=== PATIENT | male | born 1980 | race Caucasian/White ===

== ENCOUNTER 2019-09-04 19:28 | Emergency (ER) | payer OTHER ==
--- NOTE | 2019-09-04 19:59 | EDM.PDOC ---
ED HPI GENERAL MEDICAL PROBLEM - General Chief Complaint: Back Pain or Injury Stated Complaint: BACK INJURY Time Seen by Provider: 09/04/19 19:39 Source of Information: Reports: Patient, Family () History Limitations: Reports: No Limitations - History of Present Illness INITIAL COMMENTS - FREE TEXT/NARRATIVE: Mr. Ward is a very pleasant 39-year-old man with no chronic medical problems and no past surgical history, who now presents the ED stating that he developed lower right back pain that radiates to his right buttock into his right groin and teste, since midnight, when he was lifting a 50 pound bag of cat litter. The pain is only present if he is moving, and is completely absent if he remains still. The patient denies dysuria, urinary frequency, and gross hematuria. No prior similar symptoms. Here in the ED, the patient is found to be hemodynamically stable, afebrile, saturating 100% on room air. The patient states that he took 400 mg of ibuprofen around 19:00, otherwise, he has not taken any medication for this event. Other than his current symptoms, the patient denies recent fever, chills, sore throat, ear pain, nasal or sinus congestion, cough, dyspnea, chest pain, palpitations, nausea, vomiting, constipation, diarrhea, abdominal pain, urinary symptoms, recent weight gain or weight loss, recent bloody bowel movements or black bowel movements, recent joint aches, headaches, or rashes. The patient does not have a PCP. Treatments [employer]: Reports: NSAIDS Right Lower Back Pain Score (Numeric/FACES): 5 - Related Data Allergies Allergy/AdvReac Type Severity Reaction Status Date / Time strawberry Allergy Severe Anaphylactic Verified 09/04/19 19:41 Shock Home Meds: Home Meds Orphenadrine [Norflex] 1 tab PO Q12H PRN #14 tab.er 09/04/19 [Rx] Past Medical History - Past Surgical History HEENT Surgical History: Reports: Oral Surgery (wisdom teeth extracted) Social & Family History - Tobacco Use Smoking Status *Q: Never Smoker Tobacco Use Within Last Twelve Months: Smokeless Tobacco (Chews 1 pinch per day) - Caffeine Use Caffeine Use: Reports: Coffee, Energy Drinks, Soda, Tea - Alcohol Use Alcohol Use History: Yes Alcohol Use Frequency: Socially - Recreational Drug Use Recreational Drug Use: Yes Drug Use in Last 12 Months: No Recreational Drug Type: Reports: Marijuana/Hashish (last smoked around 2009) - Living Situation & Occupation Living situation: Reports: , with Spouse, with Family (3 kids) Occupation: Employed ([employer] at [employer]) ED ROS GENERAL - Review of Systems Review Of Systems: Comprehensive ROS is negative, except as noted in HPI. ED EXAM,LOWER BACK PAIN/INJURY - Physical Exam Exam: See Below Exam Limited By: No Limitations General Appearance: Alert, WD/WN, No Apparent Distress Back Exam: Other (No visible abnormality to the patient's back, such as swelling , erythema, ecchymosis, or abrasion. Reproducible tenderness to palpation of the lower right back, over the right SI joint. Nontender elsewhere, including the lumbar and sacral spinous processes. Straight leg raise is negative to 90 degrees bilaterally. The patient is able to flex to 90 degrees without difficulty, and extend to 30 degrees without difficulty. He is able to tilt to 45 degrees bilaterally without difficulty, and twist his spine to 30 degrees bilaterally without difficulty. Unilateral knee bend is normal bilaterally.) Extremities: Normal Inspection, Normal Range of Motion, Non-Tender, No Pedal Edema, Normal Capillary Refill Course - Vital Signs Last Recorded V/S: Last Vital Signs Temp 36.5 C 09/04/19 19:35 Pulse 71 09/04/19 19:35 Resp 18 09/04/19 19:35 BP 128/83 09/04/19 19:35 Pulse Ox 100 09/04/19 19:35 - Orders/Labs/Meds Labs: Laboratory Tests 09/04/19 Range/Units 20:01 Urine Color Yellow (Yellow) Urine Appearance Clear (Clear) Urine pH 7.0 (5.0-8.0) Ur Specific [place] 1.025 (1.005-1.030) Urine Protein Negative (Negative) Urine Glucose (UA) Negative (Negative) Urine Ketones Negative (Negative) Urine Occult Blood Negative (Negative) Urine Nitrite Negative (Negative) Urine Bilirubin Negative (Negative) Urine Urobilinogen 0.2 (0.2-1.0) Ur Leukocyte Esterase Negative (Negative) Urine RBC 0-5 (0-5) /hpf Urine WBC 0-5 (0-5) /hpf Ur Squamous Epith Cells 0-5 (0-5) /hpf Urine Bacteria Few (FEW) /hpf Urine Mucus Moderate H (FEW) /hpf Meds: Medications Discontinued Medications Generic Name Dose Route Start Last Admin Trade Name Ryan PRN Reason Stop Dose Admin Orphenadrine Citrate 100 mg 09/04/19 21:09 09/04/19 21:21 Norflex PO 09/04/19 21:10 100 mg ONETIME STA Administration - Re-Assessments/Exams Free Text/Narrative Re-Assessment/Exam: 09/04/19 19:57 Since the patient's symptoms developed immediately as he was lifting a 50 pound bag of cat litter, and the fact that his pain is present only if he is moving and is reproducible with direct palpation of his lower right back, the patient' s symptoms are most likely due to a muscle spasm. His physical exam is not consistent with a herniated intervertebral disc. The radiation of his pain to his groin/teste, however, is a bit concerning for a ureterolith, therefore I have ordered a urinalysis. If there is no blood in the urine, I will proceed with treatment for a muscle spasm, however, if there is blood in the urine, I will recommend a CT of the abdomen and pelvis without contrast to evaluate for a stone. 09/04/19 21:09 The patient's urinalysis is unremarkable. I have ordered oral Norflex. 09/04/19 21:14 Urinalysis results discussed with the patient and his . As above, the patient is likely suffering from a muscle spasm. He will be started on oral Norflex, and I will submit a prescription for the same, that I will recommend he take along with [id number] ibuprofen. I will recommend that he stay active, and I will provide him with a note for work, to limit the amount of weight that he lifts. Departure - Departure Time of Disposition: 21:14 Disposition: Home, Self-Care 01 Condition: Good Clinical Impression: Low back strain - Discharge Information *PRESCRIPTION DRUG MONITORING PROGRAM REVIEWED*: Not Applicable *COPY OF PRESCRIPTION DRUG MONITORING REPORT IN PATIENT CHENG: Not Applicable Prescriptions: Orphenadrine [Norflex] 1 tab PO Q12H PRN #14 tab.er PRN Reason: Muscle Spasm Instructions: Muscle Strain, [id number] Referrals: PCP,None [Primary Care Provider] - Forms: ED Department Discharge, ED Return to Work/School Form Additional Instructions: You were seen in the emergency room after developing lower right back pain that radiated to your buttock and groin, when lifting a 50 pound bag of cat litter. Work-up in the ER included a urinalysis, which returned normal. There was no blood in your urine to suggest a kidney stone. Based on your history, physical exam, and ER urinalysis, the cause of your pain is most likely due to a muscle spasm or low back strain. You have been started on the muscle relaxant Norflex, and a prescription for Norflex has been sent to the [facility] located in the [employer] store. Take 1 tablet of Norflex every 12 hours, starting tomorrow morning, 09/05/2019, as prescribed. Norflex works well with ibuprofen. We recommend that you take 3 tablets (600 mg ) every 8 hours, with food, as needed for discomfort. As discussed, it is important that you stay active. Swimming is best, but walking is good, as well. You have been provided with a note for work. If any other problems, please do not hesitate to return to the ER. Sepsis Event Note - Evaluation Sepsis Screening Result: No Definite Risk - Focused Exam Vital Signs: Vital Signs Temp Pulse Resp BP Pulse Ox 09/04/19 19:35 36.5 C 71 18 128/83 100 Date Exam was Performed: 09/04/19 Time Exam was Performed: 21:36
[2019-09-04] MEDS ORDERED: Orphenadrine 100 MG Tab.ER PO STA (21:09)
== END 2019-09-04 21:30 | disposition home or self-care (01) ==
LOC: JD.ED 19:28
DX: S39.012A Strain of muscle, fascia and tendon of lower back, initial encounter (principal); X50.9XXA Other and unspecified overexertion or strenuous movements or postures, initial encounter
CPT/HCPCS: 81001; 99283; A9270